=== PATIENT | male | born 1970 | race Hispanic/Latino ===

== ENCOUNTER 2018-05-29 00:55 | Emergency (ER) | payer SELFPAY ==
[2018-05-29 00:56] VITALS: BMI 26.4
[2018-05-29 01:12] VITALS: PULSE 88; TEMP 97.9
[2018-05-29] MEDS ORDERED: Albuterol-Ipratrop 3 mg / 0.5 (3 ml) UD IH STA (01:19)
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
[2018-05-29] MEDS ORDERED: Lidocaine 5% Patch TD ONE (02:45)
[2018-05-29 03:03] VITALS: BP 132/74; RESP 18; O2SAT 100
--- NOTE | 2018-05-29 09:56 | CARD ---
APPROVED REPORT Date of service: 05/29/2018 EKG Measurement Heart [id number] <Conclusion> Normal sinus rhythm Normal ECG No change
[2018-05-29] MEDS ORDERED: Lidocaine 5% Patch TD SCH (10:00)
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
== END 2018-05-29 03:02 | disposition home or self-care (01) ==
LOC: ED 00:55
DX: M79.18 Myalgia, other site (principal); Y08.89XA Assault by other specified means, initial encounter; Y92.9 Unspecified place or not applicable
CPT/HCPCS: 71111; 93005; 96372; 99283; J1885

== ENCOUNTER 2018-06-24 22:14 | Emergency (ER) | payer SELFPAY ==
[2018-06-24 22:31] VITALS: BMI 27.7
[2018-06-24 22:37] VITALS: BP 126/76; PULSE 100; RESP 20; TEMP 98.6; O2SAT 99
== END 2018-06-24 23:00 | disposition left against medical advice (07) ==
LOC: ED 22:14
DX: Z02.89 Encounter for other administrative examinations (principal); R20.2 Paresthesia of skin

== ENCOUNTER 2018-06-30 06:49 | Inpatient (IN) | payer MEDICAID, OTHER ==
--- NOTE | 2018-06-30 07:20 | ED PDOC ---
Arrival/HPI - General Chief Complaint: Upper Extremity Problem/Injury Historian: Patient - History of Present Illness Narrative History of Present Illness (Text): 06/30/18 07:16 48 year old male, smoker, whose past medical history includes substance abuse, presents to the emergency department complaining of left hand/ arm pain for the past 4- 5 days. Patient states that he injected his left forearm with heroin a couple of weeks ago, relapsing after 6 years. He believed his hand would heal by itself prolonging his visit to the emergency department. Patient denies fevers, chills, headache, dizziness, chest pain, shortness of breath, dyspnea on exert ion, cough, abdominal pain, nausea, vomiting, diarrhea, back pain, neck pain, or any other complaint. Time/Duration: < week Symptom Course: Unchanged Activities at Onset: Light Context: Home Past Medical History - Provider Review Nursing Documentation Reviewed: Yes - Past History Past History: No Previous - Infectious Disease Hx of Infectious Diseases: None - Tetanus Immunization Tetanus Immunization: Up to Date - Past Medical History Past Medical History: No Previous - Cardiac Hx Cardiac Disorders: No - Pulmonary Hx Respiratory Disorders: Yes - Neurological Hx Seizures: Yes (DRUG WITHDRAWWAL) - HEENT Hx HEENT Disorder: No - Renal Hx Renal Disorder: No - Endocrine/Metabolic Hx Endocrine Disorders: No - Hematological/Oncological Hx Hepatitis C: Yes - Integumentary Hx Squamous Cell Carcinoma: Yes - Musculoskeletal/Rheumatological Hx Back Pain: Yes - Gastrointestinal Hx Gastrointestinal Disorders: No - Genitourinary/Gynecological Hx Genitourinary Disorders: No - Psychiatric Hx Psychophysiologic Disorder: No Hx Substance Use: No - Surgical History Hx Orthopedic Surgery: Yes (neck and right knee sx) - Anesthesia Hx Anesthesia: Yes Hx Anesthesia Reactions: No Hx Malignant Hyperthermia: No - Suicidal Assessment Feels Threatened In Home Enviroment: No Family/Social History - Physician Review Nursing Documentation Reviewed: Yes Family/Social History: No Known Family HX Smoking Status: Current Some Days Smoker Hx Alcohol Use: No Hx Substance Use: No Substance used: marijuana Hx Substance Use Treatment: Yes Allergies/Home Meds Allergies/Adverse Reactions: Allergies No Known Allergies Allergy (Verified 06/30/18 11:40) Home Medications: Home Meds Medication Instructions Recorded Confirmed RX: No Known Home Med 06/30/18 06/30/18 Review of Systems - Physician Review All systems were reviewed & negative as marked: Yes - Review of Systems Constitutional: absent: Fevers Respiratory: absent: SOB, Cough Cardiovascular: absent: Chest Pain Gastrointestinal: absent: Abdominal Pain, Diarrhea, Nausea, Vomiting Musculoskeletal: Other (left hand/ forearm pain). absent: Back Pain, Neck Pain Neurological: absent: Headache, Dizziness Physical Exam Vital Signs Reviewed: Yes Vital Signs Temp Pulse Resp BP Pulse Ox 06/30/18 07:02 97.4 F L 95 H 18 130/94 H 100 Temperature: Afebrile Blood Pressure: Hypertensive Pulse: Tachycardic Respiratory Rate: Normal Appearance: Positive for: Well-Appearing, Non-Toxic, Comfortable Pain Distress: None Mental Status: Positive for: Alert and Oriented X 3 - Systems Exam Head: Present: Atraumatic, Normocephalic Pupils: Present: PERRL Extroacular Muscles: Present: EOMI Conjunctiva: Present: Normal Mouth: Present: Moist Mucous Membranes Neck: Present: Normal Range of Motion Respiratory/Chest: Present: Wheezes (midly wheezing). No: Respiratory Distress, Accessory Muscle Use Cardiovascular: Present: Regular Rate and Rhythm, Normal S1, S2. No: Murmurs Abdomen: No: Tenderness, Distention, Peritoneal Signs Back: Present: Normal Inspection Upper Extremity: Present: Edema (to left hand and forearm ), Tenderness (tender to touch of the left wrist and forearm), Erythema (to left hand and forearm ), Temperature Abnormalties (warm mid left forearm and down ) Lower Extremity: Present: Normal Inspection. No: Edema Neurological: Present: GCS=15, CN II-XII Intact, Speech Normal Skin: Present: Warm, Dry, Normal Color. No: Rashes Psychiatric: Present: Alert, Oriented x 3, Normal Insight, Normal Concentration Medical Decision Making ED Course and Treatment: 06/30/18 07:17 Impression: 48 year old male who presents to the emergency department complaining of left hand/ forearm pain. Plan: -- Labs -- Left Forearm X-ray -- Blood Culture -- Reassess and disposition Prior Visits: Notes and results from previous visits were reviewed. Progress Notes: 06/30/18 09:21 Left Forearm X-ray reviewed, shows: IMPRESSION: Soft tissue edema diffusely suggested as discussed above. No acute fracture dislocation left forearm. - Lab Interpretations I have reviewed the lab results: Yes - Scribe Statement The provider has reviewed the documentation as recorded by the Scribe Deysi Hernandez Provider Scribe Attestation: All medical record entries made by the Moses were at my direction and personally dictated by me. I have reviewed the chart and agree that the record accurately reflects my personal performance of the history, physical exam, medical decision making, and the department course for this patient. I have also personally directed, reviewed, and agree with the discharge instructions and disposition. Disposition/Present on Arrival - Present on Arrival Any Indicators Present on Arrival: No History of DVT/PE: No History of Uncontrolled Diabetes: No Urinary Catheter: No History of Decub. Ulcer: No History Surgical Site Infection Following: None - Disposition Have Diagnosis and Disposition been Completed?: Yes Diagnosis: Cellulitis of left forearm Disposition: HOSPITALIZED Disposition Time: 08:40 Condition: STABLE
[2018-06-30 08:12] LABS: BASO # 0.06 K/mm3 (0.0-2.0); BASO % 0.4 % (0.0-3.0); EOS # 0.1 (0.0-0.7); EOS % 0.4 % (1.5-5.0); GRAN # 13.13 (1.4-6.5); GRAN % 76.9 % (50.0-68.0); HEMOGLOBIN 14.5 g/dL (14.0-18.0); LYMPH # 2.7 (1.2-3.4); LYMPH % 15.6 % (22.0-35.0); MEAN CELL VOLUME 92.4 fl (80.0-105.0); MEAN CORPUSCULAR HEMOGLOBIN 32.6 pg (25.0-35.0); MEAN CORPUSCULAR HGB CONC 35.3 g/dl (31.0-37.0); MEAN PLATELET VOLUME 9.2 fl (7.0-11.0); MONO # 1.2 (0.1-0.6); MONO % 6.7 % (1.0-6.0); RBC 4.45 10^6/uL (3.5-6.1); RED CELL DISTRIBUTION WIDTH 12.4 % (11.5-14.5); WHITE BLOOD COUNT 17.1 10^3/uL (4.5-11.0)
[2018-06-30 08:22] LABS: ALB/GLOB RATIO 1.1 (1.1-1.8); ALBUMIN 3.8 g/dL (3.0-4.8); ALT/SGPT 33 U/L (7-56); AST/SGOT 35 U/L (17-59); BLOOD UREA NITROGEN 23 mg/dL (7-21); CALCIUM 8.9 mg/dL (8.4-10.5); GFR NON-AFRICAN AMERICAN > 60
--- NOTE | 2018-06-30 09:18 | RAD ---
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 TECHNIQUE: Frontal and lateral views obtained. FINDINGS: BONES: No acute fracture or destructive bony lesion identified. JOINT SPACES: No subluxation or dislocation appreciable. OTHER FINDINGS: Diffuse soft tissue edema suspected throughout the subcutaneous fat throughout the left forearm. No retained radiodense foreign body or emphysema soft tissue changes are identified. IMPRESSION: Soft tissue edema diffusely suggested as discussed above. No acute fracture dislocation left forearm.
[2018-06-30] MEDS ORDERED: Vancomycin 1gm in NS 250ml 1 GM/250 ML BAG IVPB STA (09:25)
--- NOTE | 2018-06-30 11:45 | US ---
Date of service: 06/30/2018 PROCEDURE: LIMITED LEFT UPPER EXTREMITY ULTRASOUND HISTORY: left arm COMPARISON: None available TECHNIQUE: High-resolution ultrasonography of the distal left forearm was performed close to the left wrist and area of palpable abnormality grayscale and color Doppler analysis. FINDINGS: Palpable abnormalities apparently located in the distal lateral forearm/proximal wrist soft tissues. Ultrasonography in this immediate location identifies a hypoechoic ovoid lesion measuring 2.9 x 0.7 x 2.2 cm with inhomogeneous internal echotexture. It is partially well-circumscribed and appears to deflect soft tissue planes superficial to it laterally. Hyperemia surrounds this structure with some blood flow identified within its contents. This likely reflects combination of phlegmon with potential limited abscess. Complex hematoma is felt to be less likely as well as other inflammatory causes. Further clinical correlation is recommended. Further, although the visualized distal cephalic vein is patent, it incompletely compresses with limited intraluminal echogenicity in a pattern compatible with a incomplete thrombosis. IMPRESSION: 1. A hypoechoic but heterogeneous focus identified within the deep subcutaneous soft tissue of the lateral distal forearm/wrist corresponding to the palpable abnormality and most likely represents phlegmon with underlying abscess not excluded to some degree. Complex hematoma or inflammatory etiologies are felt to be less likely. 2. Incidental thrombophlebitis distal left cephalic vein.
--- NOTE | 2018-06-30 11:53 | CP.PCM.HP ---
<Teodoro Garsia - Last Filed: 06/30/18 13:45> History of Present Illness - History of Present Illness History of Present Illness: Teodoro Garsia, PGY-1 History and Physical for Hospitalist Services CC: L arm pain HPI: Mr. Monahan is a 48 M with PMHx of IVD abuse off Heroin for six years and seizures dx 10 years ago secondary to drugs and possible Hepatitis C who relapsed 3 weeks ago due to family social issues. Patient states that 4 days ago, left arm started to throb and become painful. Patient was hoping it would get better, but pain has become unbearable. Patient took four pills of his 's antibiotic Augmentin as well as half a Suboxin and Xanax. Patient also complains of productive cough but states this has been going on for years. Patient denies chest pain, shortness of breath, palpitations, headache, dizziness, leg pain, abdominal pain, nausea, vomiting, subjective fevers and chills, changes in bowel habits and recent infections or travel. In ED, L forearm x-ray showed soft tissue edema, patient had leukocytosis with left shift without fever. Duplex LE and regular U/S was ordered. Patient found to have hypokalemia. PMHx: IVDU, PSHx: R knee sx, metal plate in neck for ? nerve damage All: NKDA Social: IVDU with Heroin 3 weeks ago, relapse from 6 years clean, tobacco 1/2 ppd Fam hx: denies cancer, HTN and DM hx Meds: denies regular use PCP: none Present on Admission - Present on Admission Any Indicators Present on Admission: No Review of Systems - Review of Systems Review of Systems: 12 point ROS completed and negative except as described in HPI. Past Patient History - Infectious Disease Hx of Infectious Diseases: None - Tetanus Immunizations Tetanus Immunization: Up to Date - Past Social History Smoking Status: Current Some Days Smoker - CARDIAC Hx Cardiac Disorders: No - PULMONARY Hx Respiratory Disorders: Yes - NEUROLOGICAL Hx Seizures: Yes (DRUG WITHDRAWWAL) - HEENT Hx HEENT Problems: No - RENAL Hx Chronic Kidney Disease: No - ENDOCRINE/METABOLIC Hx Endocrine Disorders: No - HEMATOLOGICAL/ONCOLOGICAL Hx Hepatitis C: Yes - INTEGUMENTARY Hx Squamous Cell: Yes - MUSCULOSKELETAL/RHEUMATOLOGICAL Hx Back Pain: Yes - GASTROINTESTINAL Hx Gastrointestinal Disorders: No - GENITOURINARY/GYNECOLOGICAL Hx Genitourinary Disorders: No - PSYCHIATRIC Hx Psychophysiologic Disorder: No Hx Substance Use: No - SURGICAL HISTORY Hx Orthopedic Surgery: Yes (neck and right knee sx) - ANESTHESIA Hx Anesthesia: Yes Hx Anesthesia Reactions: No Hx Malignant Hyperthermia: No Meds Allergies/Adverse Reactions: Allergies Allergy/AdvReac Type Severity Reaction Status Date / Time No Known Allergies Allergy Verified 06/30/18 11:40 Physical Exam - Constitutional Appears: Well, Non-toxic, No Acute Distress - Head Exam Head Exam: ATRAUMATIC, NORMAL INSPECTION, NORMOCEPHALIC - Eye Exam Eye Exam: EOMI, Normal appearance - ENT Exam ENT Exam: Mucous Membranes Moist - Neck Exam Neck exam: Positive for: Normal Inspection - Respiratory Exam Respiratory Exam: Wheezes, NORMAL BREATHING PATTERN. absent: Clear to Auscultation Bilateral, Respiratory Distress - GI/Abdominal Exam GI & Abdominal Exam: Normal Bowel Sounds, Soft. absent: Guarding, Rebound, Rigid, Tenderness - Extremities Exam Extremities exam: Positive for: normal inspection. Negative for: joint swelling Additional comments: 2 cm hard, non-fluctuant indurated distal dorsal forearm collection with edema and cellulitis distally in L forearm and hand as compared to R - Skin Additional comments: tattoos on arms and chest Results - Vital Signs Recent Vital Signs: Last Vital Signs Temp 98.2 F 06/30/18 10:31 Pulse 95 H 06/30/18 10:31 Resp 18 06/30/18 10:31 BP 129/88 06/30/18 10:17 Pulse Ox 99 06/30/18 10:31 - Labs Result Diagrams: 06/30/18 07:59 06/30/18 07:59 Labs: Laboratory Results - last 24 hr 06/30/18 06/30/18 07:59 07:59 WBC 17.1 H RBC 4.45 Hgb 14.5 Hct 41.1 L MCV 92.4 MCH 32.6 MCHC 35.3 RDW 12.4 Plt Count 280 MPV 9.2 Gran % 76.9 H Lymph % (Auto) 15.6 L [place] % (Auto) 6.7 H Eos % (Auto) 0.4 L Baso % (Auto) 0.4 Gran # 13.13 H Lymph # (Auto) 2.7 [place] # (Auto) 1.2 H Eos # (Auto) 0.1 Baso # (Auto) 0.06 Sodium 135 Potassium 3.4 L Chloride 100 Carbon Dioxide 27 Anion Gap 12 BUN 23 H Creatinine 1.0 Est GFR ( Amer) > 60 Est GFR (Non-Af Amer) > 60 Random Glucose 135 H Calcium 8.9 Total Bilirubin 0.7 AST 35 ALT 33 Alkaline Phosphatase 63 Total Protein 7.3 Albumin 3.8 Globulin 3.4 Albumin/Globulin Ratio 1.1 Assessment & Plan - Assessment and Plan (Free Text) Assessment: 48 M with PMHX of IVDU who presents with cellulitis. Sepsis 2/2 L forearm cellulitis vs abscess Leukocytosis with L shift, afebrile, tachycardia CRP 15 IVF NS @ 100 cc/hr Surgical consult - Dr. Lucero - recommendations appreciated ID consult - Dr. Puente - recommendations appreciated Vanc and Zosyn Nonvascular U/S - phlegmon with underlying abscess not excluded. Incidental t hrombophlebitis distal L cephalic vein Vascular U/S: no evidence of DVT F/u CT LUE and follow to r/o compartment syndrome F/u UDS f/u PT/PTT f/u blood cx ? Hepatitis history f/u Hep C, Hep B and HIV Ab Hypokalemia K-dur 20 m Eq replete continue to monitor Wheezing Duonebs PRN continue to monitor Patient seen, case reviewed and plan approved by Dr. Skinner. Teodoro Garsia, PGY-1 <Kiran Skinner - Last Filed: 07/01/18 08:00> Results - Vital Signs Recent Vital Signs: Last Vital Signs Temp 98 F 06/30/18 21:46 Pulse 68 06/30/18 21:46 Resp 20 06/30/18 21:46 BP 107/69 06/30/18 21:46 Pulse Ox 95 06/30/18 21:46 - Labs Result Diagrams: 07/01/18 06:20 07/01/18 06:20 Labs: Laboratory Results - last 24 hr 06/30/18 06/30/18 06/30/18 07:59 07:59 07:59 WBC 17.1 H RBC 4.45 Hgb 14.5 Hct 41.1 L MCV 92.4 MCH 32.6 MCHC 35.3 RDW 12.4 Plt Count 280 MPV 9.2 Gran % 76.9 H Lymph % (Auto) 15.6 L [place] % (Auto) 6.7 H Eos % (Auto) 0.4 L Baso % (Auto) 0.4 Gran # 13.13 H Lymph # (Auto) 2.7 [place] # (Auto) 1.2 H Eos # (Auto) 0.1 Baso # (Auto) 0.06 PT INR APTT Sodium 135 Potassium 3.4 L Chloride 100 Carbon Dioxide 27 Anion Gap 12 BUN 23 H Creatinine 1.0 Est GFR ( Amer) > 60 Est GFR (Non-Af Amer) > 60 Random Glucose 135 H Calcium 8.9 Total Bilirubin 0.7 AST 35 ALT 33 Alkaline Phosphatase 63 C-React Prot High Sens > 15.00 H Total Protein 7.3 Albumin 3.8 Globulin 3.4 Albumin/Globulin Ratio 1.1 Urine Opiates Screen Urine Methadone Screen Ur Barbiturates Screen Ur Phencyclidine Scrn Ur Amphetamines Screen U Benzodiazepines Scrn U Oth Cocaine Metabols U Cannabinoids Screen Hep Bs Antigen 06/30/18 06/30/18 07/01/18 08:30 23:38 06:20 WBC 10.1 D RBC 3.80 Hgb 12.0 L D Hct 35.4 L MCV 93.2 MCH 31.6 MCHC 33.9 RDW 12.4 Plt Count 234 MPV 9.2 Gran % 77.5 H Lymph % (Auto) 14.4 L [place] % (Auto) 6.3 H Eos % (Auto) 1.4 L Baso % (Auto) 0.4 Gran # 7.83 H Lymph # (Auto) 1.5 [place] # (Auto) 0.6 Eos # (Auto) 0.1 Baso # (Auto) 0.04 PT INR APTT Sodium Potassium Chloride Carbon Dioxide Anion Gap BUN Creatinine Est GFR ( Amer) Est GFR (Non-Af Amer) Random Glucose Calcium Total Bilirubin AST ALT Alkaline Phosphatase C-React Prot High Sens Total Protein Albumin Globulin Albumin/Globulin Ratio Urine Opiates Screen Positive H Urine Methadone Screen Negative Ur Barbiturates Screen Negative Ur Phencyclidine Scrn Negative Ur Amphetamines Screen Negative U Benzodiazepines Scrn Negative U Oth Cocaine Metabols Negative U Cannabinoids Screen Negative Hep Bs Antigen Negative 07/01/18 07/01/18 06:20 06:20 WBC RBC Hgb Hct MCV MCH MCHC RDW Plt Count MPV Gran % Lymph % (Auto) [place] % (Auto) Eos % (Auto) Baso % (Auto) Gran # Lymph # (Auto) [place] # (Auto) Eos # (Auto) Baso # (Auto) PT 12.1 INR 1.05 APTT 26.7 Sodium 135 Potassium 3.7 Chloride 105 Carbon Dioxide 27 Anion Gap 7 L BUN 19 Creatinine 1.1 Est GFR ( Amer) > 60 Est GFR (Non-Af Amer) > 60 Random Glucose 112 H Calcium 8.1 L Total Bilirubin 0.4 AST 31 ALT 32 Alkaline Phosphatase 60 C-React Prot High Sens Total Protein 5.6 L Albumin 2.9 L Globulin 2.8 Albumin/Globulin Ratio 1.0 L Urine Opiates Screen Urine Methadone Screen Ur Barbiturates Screen Ur Phencyclidine Scrn Ur Amphetamines Screen U Benzodiazepines Scrn U Oth Cocaine Metabols U Cannabinoids Screen Hep Bs Antigen Attending/Attestation - Attestation I have personally seen and examined this patient.: Yes I have fully participated in the care of the patient.: Yes I have reviewed all pertinent clinical information: Yes Notes (Text): 07/01/18 07:57 Medical record note made by the resident after discussion with my direction and input after the patient was personally seen and examined by me. I have reviewed the chart and agree that the record accurately reflects by personal performance of the history, physical exam, data review, and medical decision-making, in the course for the patient. I have also personally directed the plan of care. 48 M with PMH of IV drug abuse , seizure disorder? is admitted with left arm cellulitis, rule out abscess. Continue IV antibiotics Vancomycin and Zosyn We will get CT scan of left forearm.We will follow up blood cultures. We will also get Surgery evaluation. Management plan was discussed in detail with patient. Education was provided
--- NOTE | 2018-06-30 13:04 | US ---
PROCEDURE: Left upper extremity venous ultrasound HISTORY: Arm pain and swelling. Evaluate for deep venous thrombosis. PHYSICIAN(S): Festus Nazario MD. FINDINGS: The visualized leftinternal jugular vein is sonographically normal and compressible. No evidence of obstruction or thrombus is seen. The visualized segments of the left subclavian vein are patent with normal waveforms. No sonographic evidence of obstruction or thrombosis is seen. The visualized deep venous system of the proximal leftupper extremity is sonographically normal and compressible. IMPRESSION: 1. No sonographic evidence for deep venous thrombosis in the visualized segments of the left upper extremity.
[2018-06-30] MEDS ORDERED: Potassium Chloride 20 mEq ER Tab PO ONE (13:13)
[2018-06-30] MEDS ORDERED: Albuterol-Ipratrop 3 mg / 0.5 (3 ml) UD IH PRN (13:18)
--- NOTE | 2018-06-30 13:46 | CP.PCM.CON ---
History of Present Illness - History of Present Illness History of Present Illness: Chad Cruz DO PGY1 - Internal Medicine network internship - Surgical Consult Note for Dr. Lucero 45M w/ PMHX IVDA presented to [facility] [place] w/ CC of L arm pain. Patient reported pain is located along medial aspect of his left forearm after injecting himself w/ heroin in the same region 4-5 days ago. Patient reports the pain radiates down into his hand and has an associated numbness w/ some weakness in regards to closing his L hand. Patient also reports associated chills. Remainder of 12 system ROS is otherwise negative. Surgery consulted for evaluation of L arm for possible I+D of abscess PMH: IVDA PSH: R knee orthopedic surgery, cervical surgery for pinched nerve ALL: NKDA FAM: Non contributory MEDS: None Social: IVDU PCP: NONE Review of Systems - Review of Systems Review of Systems: as per HPI Past Patient History - Infectious Disease Hx of Infectious Diseases: None - Tetanus Immunizations Tetanus Immunization: Up to Date - Past Social History Smoking Status: Current Some Days Smoker - CARDIAC Hx Cardiac Disorders: No - PULMONARY Hx Respiratory Disorders: Yes - NEUROLOGICAL Hx Seizures: Yes (DRUG WITHDRAWWAL) - HEENT Hx HEENT Problems: No - RENAL Hx Chronic Kidney Disease: No - ENDOCRINE/METABOLIC Hx Endocrine Disorders: No - HEMATOLOGICAL/ONCOLOGICAL Hx Hepatitis C: Yes - INTEGUMENTARY Hx Squamous Cell: Yes - MUSCULOSKELETAL/RHEUMATOLOGICAL Hx Back Pain: Yes - GASTROINTESTINAL Hx Gastrointestinal Disorders: No - GENITOURINARY/GYNECOLOGICAL Hx Genitourinary Disorders: No - PSYCHIATRIC Hx Psychophysiologic Disorder: No Hx Substance Use: No - SURGICAL HISTORY Hx Orthopedic Surgery: Yes (neck and right knee sx) - ANESTHESIA Hx Anesthesia: Yes Hx Anesthesia Reactions: No Hx Malignant Hyperthermia: No Meds Allergies/Adverse Reactions: Allergies Allergy/AdvReac Type Severity Reaction Status Date / Time No Known Allergies Allergy Verified 06/30/18 11:40 - Medications Medications: Current Medications Albuterol/Ipratropium (Duoneb 3 Mg/0.5 Mg (3 Ml) Ud) 3 ml IH Q2H PRN PRN Reason: Shortness of Breath Vancomycin HCl (Vancomycin 1gm) 1 gm in 250 mls @ 167 mls/hr IVPB Q12H JUDY; Protocol Stop: 07/09/18 12:46 Piperacillin Sod/Tazobactam Sod (Zosyn 3.375 In Ns 100ml) 100 mls @ 25 mls/hr IVPB Q8 JUDY; Protocol Stop: 07/06/18 14:01 Physical Exam - Constitutional Appears: Well, Non-toxic, No Acute Distress - Head Exam Head Exam: ATRAUMATIC, NORMOCEPHALIC - Eye Exam Eye Exam: EOMI, Normal appearance, PERRL. absent: Scleral icterus - ENT Exam ENT Exam: Mucous Membranes Moist - Respiratory Exam Respiratory Exam: Clear to Auscultation Bilateral, NORMAL BREATHING PATTERN - Cardiovascular Exam Cardiovascular Exam: RRR, +S1, +S2 - GI/Abdominal Exam GI & Abdominal Exam: Soft. 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 Arm/Hand are warm w/pulses in tact; pitting edema appreciated on dorsal aspect of left hand; no fluctuant mass/ abscess palpated on exam RUE - wnl - Neurological Exam Neurological exam: Alert, Oriented x3 - Skin Skin Exam: Dry, Intact, Warm Results - Vital Signs Recent Vital Signs: Last Vital Signs Temp 98.2 F 06/30/18 10:31 Pulse 95 H 06/30/18 10:31 Resp 18 06/30/18 10:31 BP 129/88 06/30/18 10:17 Pulse Ox 99 06/30/18 10:31 - Labs Result Diagrams: 06/30/18 07:59 06/30/18 07:59 Labs: Laboratory Results - last 24 hr 06/30/18 06/30/18 06/30/18 07:59 07:59 07:59 WBC 17.1 H RBC 4.45 Hgb 14.5 Hct 41.1 L MCV 92.4 MCH 32.6 MCHC 35.3 RDW 12.4 Plt Count 280 MPV 9.2 Gran % 76.9 H Lymph % (Auto) 15.6 L [place] % (Auto) 6.7 H Eos % (Auto) 0.4 L Baso % (Auto) 0.4 Gran # 13.13 H Lymph # (Auto) 2.7 [place] # (Auto) 1.2 H Eos # (Auto) 0.1 Baso # (Auto) 0.06 Sodium 135 Potassium 3.4 L Chloride 100 Carbon Dioxide 27 Anion Gap 12 BUN 23 H Creatinine 1.0 Est GFR ( Amer) > 60 Est GFR (Non-Af Amer) > 60 Random Glucose 135 H Calcium 8.9 Total Bilirubin 0.7 AST 35 ALT 33 Alkaline Phosphatase 63 C-React Prot High Sens > 15.00 H Total Protein 7.3 Albumin 3.8 Globulin 3.4 Albumin/Globulin Ratio 1.1 Assessment & Plan - Assessment and Plan (Free Text) Assessment: 45M w/ PMHX IVDA presented to [facility] [place] w/ CC of L arm pain. Surgery consulted to evaluate LUE for possible I+D Plan: -Follow up CT arm -LUE US - phlegmon w/ underlying abscess? -LUE XR - Soft tissue edema -Elevated LUE -Warm Compress -IV ABX as per ID -Further reccs per Dr. Nic Cruz DO PGY1 - Internal Medicine Motor[employer]ach Driver - Surgery Consult Note for Dr. Lucero - Date & Time Date: 06/30/18 Time: 15:16
[2018-06-30] MEDS ORDERED: Piperacillin/Tazobact 3.375 gm 100 ML IVPB SCH (14:00)
[2018-06-30 14:14] VITALS: BMI 30.4
[2018-06-30] MEDS ORDERED: Pneumococcal 23-Valent Vaccine IM ONE (14:14)
[2018-06-30] MEDS ORDERED: Influenza Vaccine 60 mcg/0.5 mL SYR (4YR UP) IM ONE (14:14)
--- NOTE | 2018-06-30 14:52 | CT ---
Date of service: 06/30/2018 PROCEDURE: CT of the left hand without contrast HISTORY: r/o collection / compartment syndrome COMPARISON: TECHNIQUE: Radiation dose: Total exam DLP = 247.58 mGy-cm. This CT exam was performed using one or more of the following dose reduction techniques: Automated exposure control, adjustment of the mA and/or kV according to patient size, and/or use of iterative reconstruction technique. FINDINGS: There is subcutaneous edema surrounding the wrist. There is no focal abscess collection. There is no evidence of osteomyelitis. IMPRESSION: Subcutaneous edema surrounding the wrist consistent with cellulitis.
[2018-06-30] MEDS: Vancomycin 1gm in NS 250ml 1 GM/250 ML BAG IVPB SCH (15:05)
[2018-06-30] MEDS: Piperacillin/Tazobact 3.375 gm 100 ML IVPB SCH ×2 (15:05→21:41)
[2018-06-30] MEDS: Sodium Chloride 0.9% 1,000 ML IV SCH (15:11)
--- NOTE | 2018-06-30 16:11 | CON ---
DATE: 06/30/2018 LOCATION: The patient is in bed in room #567, bed 1. CHIEF COMPLAINT: Left arm swelling and erythema and edema x1 day duration. HISTORY OF PRESENT ILLNESS: This is a 48-year-old male with a history of intravenous drug abuser, actively shoots up. He has a history of hepatitis C, seizures, chronic pain syndrome, and states that he shot up into his arm. His arm became swollen. He denies any fevers, any chills, any nausea. No vomiting. However, significant pain in the arm. No chest pain, shortness of breath or cough. PAST MEDICAL HISTORY: Significant for hepatitis C, chronic pain syndrome, seizures, and active intravenous drug abuser and tobacco user. PAST SURGICAL HISTORY: Noncontributory. ALLERGIES: THE PATIENT HAS NO KNOWN ALLERGIES. MEDICATIONS AT HOME: He takes no medications. He is currently an intravenous active user. PHYSICAL EXAMINATION: VITAL SIGNS: The patient's temperature is 98, blood pressure is 130/80, respiratory rate of 18, heart rate of 95. HEENT: Examination of HEENT is unremarkable. NECK: Supple. LUNGS: Have decreased breath sounds. HEART: Normal S1, S2. ABDOMEN: Soft, nontender. EXTREMITIES: Examination of the arm reveals the patient has erythema and edema in left arm, significant edema. LABORATORY EXAMINATION: Reveals a white count of 17,000, hemoglobin of 14, platelets of 280. BUN of 23, creatinine of 1. The patient had an ultrasound of the extremity, results pending. The patient had an x-ray of the extremity, also results are pending. ASSESSMENT AND PLAN: This is a 48-year-old, who is an active intravenous drug abuse, admitted with sepsis, with left arm cellulitis and probable abscess versus compartment syndrome. We will send for a stat CAT scan of the arm and surgical consultation and blood cultures. If there is incision and drainage of an abscess, should go for cultures, should have an HIV test, and hepatitis C treatment may be done as outpatient upon discharge, and we will follow closely with you. Check on the ultrasound, CAT scan results, and we will follow with you. Abhi Puente MD [facility] # [id number]
[2018-07-01] MEDS: Vancomycin 1gm in NS 250ml 1 GM/250 ML BAG IVPB SCH ×2 (03:01→12:46)
[2018-07-01 05:13] LABS: BARBITURATES, UR NEGATIVE (NEGATIVE); BENZODIAZEPINES, UR NEGATIVE (NEGATIVE); OPIATES, UR POSITIVE (NEGATIVE); PHENCYCLIDINE, UR NEGATIVE (NEGATIVE)
[2018-07-01] MEDS: Piperacillin/Tazobact 3.375 gm 100 ML IVPB SCH ×3 (05:54→22:48)
[2018-07-01 07:05] LABS: INR 1.05; PARTIAL THROMBOPLASTIN TIME 26.7 Seconds (25.1-36.5); PROTHROMBIN TIME 12.1 SECONDS (9.4-12.5)
[2018-07-01 07:08] LABS: BASO # 0.04 K/mm3 (0.0-2.0); BASO % 0.4 % (0.0-3.0); EOS # 0.1 (0.0-0.7); EOS % 1.4 % (1.5-5.0); GRAN # 7.83 (1.4-6.5); GRAN % 77.5 % (50.0-68.0); LYMPH # 1.5 (1.2-3.4); LYMPH % 14.4 % (22.0-35.0); MEAN CELL VOLUME 93.2 fl (80.0-105.0); MEAN CORPUSCULAR HEMOGLOBIN 31.6 pg (25.0-35.0); MEAN CORPUSCULAR HGB CONC 33.9 g/dl (31.0-37.0); MEAN PLATELET VOLUME 9.2 fl (7.0-11.0); MONO # 0.6 (0.1-0.6); MONO % 6.3 % (1.0-6.0); RBC 3.8 10^6/uL (3.5-6.1); RED CELL DISTRIBUTION WIDTH 12.4 % (11.5-14.5); WHITE BLOOD COUNT 10.1 10^3/uL (4.5-11.0)
--- NOTE | 2018-07-01 07:39 | CP.PCM.PN ---
Subjective - Date & Time of Evaluation Date of Evaluation: 07/01/18 Time of Evaluation: 07:33 - Subjective Subjective: Chad Cruz PGY1 - Internal Medicine Motor Home Electrical Foreman - Surgery Progress Note for Dr. Lucero Patient seen and examined this AM at bedside Reports his hand feels much better; improved mobility of LUE; decreased numbness/ tingling Patient is afebrile; remainder 12 system ROS otherwise negative. Objective - Vital Signs/Intake and Output Vital Signs (last 24 hours): Temp Pulse Resp BP Pulse Ox 98 F 68 20 107/69 95 06/30/18 21:46 06/30/18 21:46 06/30/18 21:46 06/30/18 21:46 06/30/18 21:46 Intake and Output: 07/01/18 07/01/18 06:59 18:59 Intake Total 360 Balance 360 - Medications Medications: Current Medications Albuterol/Ipratropium (Duoneb 3 Mg/0.5 Mg (3 Ml) Ud) 3 ml IH Q2H PRN PRN Reason: Shortness of Breath Vancomycin HCl (Vancomycin 1gm) 1 gm in 250 mls @ 167 mls/hr IVPB Q12H JUDY; Protocol Stop: 07/09/18 12:46 Last Admin: 07/01/18 03:01 Dose: 167 mls/hr Piperacillin Sod/Tazobactam Sod (Zosyn 3.375 In Ns 100ml) 100 mls @ 25 mls/hr IVPB Q8 JUDY; Protocol Stop: 07/06/18 14:01 Last Admin: 07/01/18 05:54 Dose: 25 mls/hr Sodium Chloride (Sodium Chloride 0.9%) 1,000 mls @ 100 mls/hr IV .Q10H JUDY Last Admin: 06/30/18 15:11 Dose: 100 mls/hr - Labs Labs: 07/01/18 06:20 06/30/18 07:59 PT 12.1 SECONDS (9.4-12.5) 07/01/18 06:20 INR 1.05 07/01/18 06:20 APTT 26.7 Seconds (25.1-36.5) 07/01/18 06:20 Physical Exam - Constitutional Appears: Well, Non-toxic, No Acute Distress - Head Exam Head Exam: ATRAUMATIC, NORMOCEPHALIC - Eye Exam Eye Exam: EOMI, Normal appearance, PERRL. absent: Scleral icterus - ENT Exam ENT Exam: Mucous Membranes Moist - Respiratory Exam Respiratory Exam: Clear to Auscultation Bilateral, NORMAL BREATHING PATTERN - Cardiovascular Exam Cardiovascular Exam: RRR, +S1, +S2 - GI/Abdominal Exam GI & Abdominal Exam: Soft. absent: Tenderness - Extremities Exam Additional comments: LUE - moderate edema / swelling extending from medial aspect of forearm to hand; Numbness along dorsal and palmar aspect of L hand; L hand project admin strength relativ roxy diminished compared to R 2/2 pain. Arm/Hand are warm w/pulses in tact; no fluctuant mass/ abscess palpated on exam All findings are improved from examination prior. RUE - wnl - Neurological Exam Neurological exam: Alert, Oriented x3 - Skin Skin Exam: Dry, Intact, Warm Assessment and Plan - Assessment and Plan (Free Text) Assessment: 45M w/ PMHX IVDA presented to [facility] [place] ED on 06/30 w/ CC of L arm pain. Surgery consulted to evaluate LUE for possible I+D Plan: -LUE CT- no abscess -LUE US - phlegmon w/ underlying abscess? -LUE XR - Soft tissue edema -Continue Elevating LUE -Continue applying Warm Compress to area -IV ABX as per ID -No acute need for surgical intervention at this time -Please reconsult as necessary Chad Cruz DO PGY1 - Internal Medicine [employer] Electrical Foreman - Surgery Consult Note for Dr. Lucero
[2018-07-01 07:54] LABS: ALBUMIN 2.9 g/dL (3.0-4.8); ALT/SGPT 32 U/L (7-56); AST/SGOT 31 U/L (17-59); BLOOD UREA NITROGEN 19 mg/dL (7-21); CALCIUM 8.1 mg/dL (8.4-10.5); GFR NON-AFRICAN AMERICAN > 60
--- NOTE | 2018-07-01 14:51 | CP.PCM.PN ---
<Teodoro Garsia - Last Filed: 07/01/18 14:58> Subjective - Date & Time of Evaluation Date of Evaluation: 07/01/18 Time of Evaluation: 08:00 - Subjective Subjective: Teodoro Garsia PGY-1 Progress Note for Hospitalist Service Patient seen and evaluated at bedside. No acute complaints reported overnight. Reports l arm is still painful but improved. Patient denies chest pain, palpitations, shortness of breath, headaches, dizziness. Objective - Vital Signs/Intake and Output Vital Signs (last 24 hours): Temp Pulse Resp BP Pulse Ox 98.6 F 78 20 104/61 94 L 07/01/18 06:00 07/01/18 06:00 07/01/18 06:00 07/01/18 06:00 07/01/18 06:00 Intake and Output: 07/01/18 07/01/18 06:59 18:59 Intake Total 360 Balance 360 - Medications Medications: Current Medications Albuterol/Ipratropium (Duoneb 3 Mg/0.5 Mg (3 Ml) Ud) 3 ml IH Q2H PRN PRN Reason: Shortness of Breath Vancomycin HCl (Vancomycin 1gm) 1 gm in 250 mls @ 167 mls/hr IVPB Q12H JUDY; Protocol Stop: 07/09/18 12:46 Last Admin: 07/01/18 12:46 Dose: 167 mls/hr Piperacillin Sod/Tazobactam Sod (Zosyn 3.375 In Ns 100ml) 100 mls @ 25 mls/hr IVPB Q8 JUDY; Protocol Stop: 07/06/18 14:01 Last Admin: 07/01/18 14:08 Dose: 25 mls/hr Sodium Chloride (Sodium Chloride 0.9%) 1,000 mls @ 100 mls/hr IV .Q10H JUDY Last Admin: 06/30/18 15:11 Dose: 100 mls/hr Ketorolac Tromethamine (Toradol) 15 mg IM Q6 PRN PRN Reason: Pain, moderate (4-7) Stop: 07/06/18 13:05 Last Admin: 07/01/18 14:09 Dose: 15 mg - Labs Labs: 07/01/18 06:20 07/01/18 06:20 PT 12.1 SECONDS (9.4-12.5) 07/01/18 06:20 INR 1.05 07/01/18 06:20 APTT 26.7 Seconds (25.1-36.5) 07/01/18 06:20 - Additional Findings Additional findings: - Constitutional Appears: Well, Non-toxic, No Acute Distress - Head Exam Head Exam: ATRAUMATIC, NORMAL INSPECTION, NORMOCEPHALIC - Eye Exam Eye Exam: EOMI, Normal appearance - ENT Exam ENT Exam: Mucous Membranes Moist - Neck Exam Neck exam: Positive for: Normal Inspection - Respiratory Exam Respiratory Exam: Wheezes, NORMAL BREATHING PATTERN. absent: Clear to Auscultation Bilateral, Respiratory Distress - GI/Abdominal Exam GI & Abdominal Exam: Normal Bowel Sounds, Soft. absent: Guarding, Rebound, Rigid, Tenderness - Extremities Exam Extremities exam: Positive for: normal inspection. Negative for: joint swelling Additional comments: 2 cm hard, non-fluctuant indurated distal dorsal forearm collection with edema and cellulitis distally in L forearm and hand as compared to R, improving since 06/30 - Skin Additional comments: tattoos on arms and chest Assessment and Plan - Assessment and Plan (Free Text) Assessment: 48 M with PMHX of IVDU and Hepatitis C who presents with cellulitis of left forearm. Sepsis 2/2 L forearm cellulitis, r/o abscess- improved Leukocytosis with L shift, afebrile, tachycardia on admission WBC 10.1 CRP 15 IVF NS @ 100 cc/hr Surgical consult - Dr. Lucero - warm compresses, extremity elevation, no drainage at this time. ID consult - Dr. Puente - recommendations appreciated Vanc and Zosyn day 2 Nonvascular U/S - phlegmon with underlying abscess not excluded. Incidental thrombophlebitis distal L cephalic vein Vascular U/S: no evidence of DVT CT LUE - subcutaneous edema around wrist. No focal abscess. no OM. C/w cellulitis UDS + opiates blood cx 2/2 neg after 24 hours Normocytic Anemia Hgb 12, likely dilutional continue to monitor Hepatitis C + for Hep C ABx, reactive neg for HIV Counselling provided, compliance discussed Patient encouraged to follow up in outpatient clinic and importance of compliance with medications Pain control Toradol 15 mg q6 PRN Avoid opioids Hypokalemia- resolved K-dur 20 m Eq replete 06/30 continue to monitor Wheezing Duonebs PRN continue to monitor Patient seen, case reviewed and plan approved by Dr. Skinner. Teodoro Garsia, PGY-1 <Kiran Skinner - Last Filed: 07/02/18 12:00> Objective - Vital Signs/Intake and Output Vital Signs (last 24 hours): Temp Pulse Resp BP Pulse Ox 98 F 62 20 123/64 96 07/02/18 07:00 07/02/18 07:00 07/02/18 07:00 07/02/18 07:00 07/02/18 07:00 Intake and Output: 07/02/18 07/02/18 06:59 18:59 Intake Total 2009 Balance 2009 - Medications Medications: Current Medications Albuterol/Ipratropium (Duoneb 3 Mg/0.5 Mg (3 Ml) Ud) 3 ml IH Q2H PRN PRN Reason: Shortness of Breath Vancomycin HCl (Vancomycin 1gm) 1 gm in 250 mls @ 167 mls/hr IVPB Q12H JUDY; Protocol Stop: 07/09/18 12:46 Last Admin: 07/02/18 01:03 Dose: 167 mls/hr Piperacillin Sod/Tazobactam Sod (Zosyn 3.375 In Ns 100ml) 100 mls @ 25 mls/hr IVPB Q8 JUDY; Protocol Stop: 07/06/18 14:01 Last Admin: 07/02/18 05:56 Dose: 25 mls/hr Sodium Chloride (Sodium Chloride 0.9%) 1,000 mls @ 100 mls/hr IV .Q10H JUDY Last Admin: 07/02/18 05:53 Dose: 100 mls/hr Ketorolac Tromethamine (Toradol) 15 mg IM Q6 PRN PRN Reason: Pain, moderate (4-7) Stop: 07/06/18 13:05 Last Admin: 07/01/18 22:50 Dose: 15 mg - Labs Labs: 07/02/18 06:30 07/02/18 06:30 PT 12.1 SECONDS (9.4-12.5) 07/01/18 06:20 INR 1.05 07/01/18 06:20 APTT 26.7 Seconds (25.1-36.5) 07/01/18 06:20 Attending/Attestation - Attestation I have personally seen and examined this patient.: Yes I have fully participated in the care of the patient.: Yes I have reviewed all pertinent clinical information, including history, physical exam and plan: Yes Notes (Text): 07/02/18 11:59 Medical record note made by the resident after discussion with my direction and input after the patient was personally seen and examined by me. I have reviewed the chart and agree that the record accurately reflects by personal performance of the history, physical exam, data review, and medical decision-making, in the course for the patient. I have also personally directed the plan of care. 48 M with H of IV drug abuse , seizure disorder? was admitted with left arm cellulitis, CT scan was negative for any abscess. Redness and swelling is improving Continue IV antibiotics Vancomycin and Zosyn Blood cultures are negative for any growth. Management plan was discussed in detail with patient. Education was provided
[2018-07-01] MEDS: Sodium Chloride 0.9% 1,000 ML IV SCH ×2 (18:10→22:50)
--- NOTE | 2018-07-01 22:15 | CP.PCM.PN ---
Subjective - Date & Time of Evaluation Date of Evaluation: 07/01/18 Time of Evaluation: 09:05 - Subjective Subjective: Still with pain and swelling in the left arm, no fevers. Objective - Vital Signs/Intake and Output Vital Signs (last 24 hours): Temp Pulse Resp BP Pulse Ox 98.3 F 79 20 111/65 96 07/01/18 18:00 07/01/18 14:00 07/01/18 14:00 07/01/18 14:00 07/01/18 14:00 - Medications Medications: Current Medications Albuterol/Ipratropium (Duoneb 3 Mg/0.5 Mg (3 Ml) Ud) 3 ml IH Q2H PRN PRN Reason: Shortness of Breath Vancomycin HCl (Vancomycin 1gm) 1 gm in 250 mls @ 167 mls/hr IVPB Q12H JUDY; Protocol Stop: 07/09/18 12:46 Last Admin: 07/01/18 12:46 Dose: 167 mls/hr Piperacillin Sod/Tazobactam Sod (Zosyn 3.375 In Ns 100ml) 100 mls @ 25 mls/hr IVPB Q8 JUYD; Protocol Stop: 07/06/18 14:01 Last Admin: 07/01/18 14:40 Dose: 25 mls/hr Sodium Chloride (Sodium Chloride 0.9%) 1,000 mls @ 100 mls/hr IV .Q10H JUDY Last Admin: 07/01/18 18:10 Dose: Not Given Ketorolac Tromethamine (Toradol) 15 mg IM Q6 PRN PRN Reason: Pain, moderate (4-7) Stop: 07/06/18 13:05 Last Admin: 07/01/18 14:09 Dose: 15 mg - Labs Labs: 07/01/18 06:20 07/01/18 06:20 PT 12.1 SECONDS (9.4-12.5) 07/01/18 06:20 INR 1.05 07/01/18 06:20 APTT 26.7 Seconds (25.1-36.5) 07/01/18 06:20 - Constitutional Appears: No Acute Distress, Chronically Ill - Head Exam Head Exam: NORMAL INSPECTION - Respiratory Exam Respiratory Exam: Decreased Breath Sounds - Cardiovascular Exam Cardiovascular Exam: +S1, +S2 - GI/Abdominal Exam GI & Abdominal Exam: Soft. absent: Tenderness - Extremities Exam Additional comments: left forearm with swelling and erythema Assessment and Plan - Assessment and Plan (Free Text) Plan: Assessment Left forearm cellulitis in an IV drug user with sepsis chronic active hepatitis C seizure disorder chronic pain syndrome Plan continue Vancomycin and Zosyn pending final blood cx results surgery following to monitor if patient develops abscess
[2018-07-02] MEDS: Vancomycin 1gm in NS 250ml 1 GM/250 ML BAG IVPB SCH ×2 (01:03→12:47)
[2018-07-02 05:52] VITALS: RESP 20
[2018-07-02] MEDS: Sodium Chloride 0.9% 1,000 ML IV SCH ×3 (05:53→20:48)
[2018-07-02] MEDS: Piperacillin/Tazobact 3.375 gm 100 ML IVPB SCH ×2 (05:56→13:56)
[2018-07-02 07:14] LABS: ALBUMIN 2.9 g/dL (3.0-4.8); ALT/SGPT 28 U/L (7-56); AST/SGOT 21 U/L (17-59); BLOOD UREA NITROGEN 16 mg/dL (7-21); GFR NON-AFRICAN AMERICAN > 60
[2018-07-02 07:55] LABS: HEMOGLOBIN 12.4 g/dL (14.0-18.0); MEAN CELL VOLUME 93.5 fl (80.0-105.0); MEAN CORPUSCULAR HEMOGLOBIN 32.1 pg (25.0-35.0); MEAN CORPUSCULAR HGB CONC 34.3 g/dl (31.0-37.0); RBC 3.86 10^6/uL (3.5-6.1); RED CELL DISTRIBUTION WIDTH 11.9 % (11.5-14.5); WHITE BLOOD COUNT 8.1 10^3/uL (4.5-11.0)
[2018-07-02 07:56] LABS: BASO # 0.03 K/mm3 (0.0-2.0); BASO % 0.4 % (0.0-3.0); EOS # 0.1 (0.0-0.7); EOS % 1.1 % (1.5-5.0); GRAN # 5.69 (1.4-6.5); GRAN % 69.9 % (50.0-68.0); LYMPH # 1.7 (1.2-3.4); MEAN PLATELET VOLUME 9.9 fl (7.0-11.0); MONO # 0.6 (0.1-0.6); MONO % 7.6 % (1.0-6.0)
--- NOTE | 2018-07-02 09:58 | CP.PCM.PN ---
Subjective - Date & Time of Evaluation Date of Evaluation: 07/02/18 Time of Evaluation: 08:20 Objective - Vital Signs/Intake and Output Vital Signs (last 24 hours): Temp Pulse Resp BP Pulse Ox 98 F 62 20 123/64 96 07/02/18 07:00 07/02/18 07:00 07/02/18 07:00 07/02/18 07:00 07/02/18 07:00 Intake and Output: 07/02/18 07/02/18 06:59 18:59 Intake Total 2009 Balance 2009 - Medications Medications: Current Medications Albuterol/Ipratropium (Duoneb 3 Mg/0.5 Mg (3 Ml) Ud) 3 ml IH Q2H PRN PRN Reason: Shortness of Breath Vancomycin HCl (Vancomycin 1gm) 1 gm in 250 mls @ 167 mls/hr IVPB Q12H JUDY; Protocol Stop: 07/09/18 12:46 Last Admin: 07/02/18 01:03 Dose: 167 mls/hr Piperacillin Sod/Tazobactam Sod (Zosyn 3.375 In Ns 100ml) 100 mls @ 25 mls/hr IVPB Q8 JUDY; Protocol Stop: 07/06/18 14:01 Last Admin: 07/02/18 05:56 Dose: 25 mls/hr Sodium Chloride (Sodium Chloride 0.9%) 1,000 mls @ 100 mls/hr IV .Q10H JUDY Last Admin: 07/02/18 05:53 Dose: 100 mls/hr Ketorolac Tromethamine (Toradol) 15 mg IM Q6 PRN PRN Reason: Pain, moderate (4-7) Stop: 07/06/18 13:05 Last Admin: 07/01/18 22:50 Dose: 15 mg - Labs Labs: 07/02/18 06:30 07/02/18 06:30 PT 12.1 SECONDS (9.4-12.5) 07/01/18 06:20 INR 1.05 07/01/18 06:20 APTT 26.7 Seconds (25.1-36.5) 07/01/18 06:20
--- NOTE | 2018-07-02 13:42 | PN ---
DATE: 07/02/2018 SUBJECTIVE: The patient is in bed, in no acute distress. PHYSICAL EXAMINATION: VITAL SIGNS: Temperature is 98, blood pressure is 120/60 and respiratory rate of 18. Examination of HEENT is unremarkable. NECK: Supple. LUNGS: Have decreased breath sounds. HEART: Normal S1 and S2. ABDOMEN: Soft, nontender. LABORATORY DATA: Reveals a white count of 8, hemoglobin 12. Chemistries are noted. Toxicology reveals opioids to be positive. Hepatitis C is positive. HIV is nonreactive. Microbiology reveals the blood cultures are negative. CT of the extremity reveals continuous edema. No abscess collection. No osteomyelitis and the patient's arm is greatly improved. ASSESSMENT AND PLAN: This is a 48-year-old male with left forearm cellulitis and sepsis with chronic active hepatitis C and seizures, on vancomycin and Zosyn, with negative blood cultures. May be able to switch to oral antibiotics, oral Augmentin and oral doxycycline x7 days as outpatient with all cultures negative and arm is greatly improved. Abhi Puente MD
--- NOTE | 2018-07-02 14:22 | CP.PCM.DIS ---
<CatWendy L - Last Filed: 07/02/18 19:40> Provider - Provider Date of Admission: 07/01/18 07:54 Attending physician: Kiran Skinner MD Primary care physician: Dr. Clement Consults: 06/30/18 11:45 Infectious Disease Consult Routine Comment: Consulting Provider: Abhi Puente Consulting Physician: Abhi Puente Reason for Consult: L arm abscess, ABx approval 06/30/18 12:51 General Surgery Consult Routine Comment: Consulting Provider: Mercedes Lucero Consulting Physician: Mercedes Lucero Reason for Consult: ? drainage, L arm abscess pending CT LUE 06/30/18 14:14 Inpatient NEWS TECHNICAL DIRECTOR Core Measures Referral Routine Comment: Physician Instructions: Reason For Exam: EVALUATION Nursing Referral for Wound Care Routine Comment: LEFT FOREARM CELLULITIS Physician Instructions: Reason For Exam: EVALUATION Transition In Care/Readmission Reduction Routine Comment: Physician Instructions: Reason For Exam: EVALUATION Time Spent in preparation of Discharge (in minutes): 45 Diagnosis - Discharge Diagnosis (1) Cellulitis of left forearm Status: Acute Hospital Course - Lab Results Lab Results: Micro Results 06/30/18 09:00 Blood Blood Culture - Preliminary NO GROWTH AFTER 48 HOURS 06/30/18 07:59 Blood Blood Culture - Preliminary NO GROWTH AFTER 48 HOURS Most Recent Lab Values WBC 8.1 10^3/uL (4.5-11.0) 07/02/18 06:30 RBC 3.86 10^6/uL (3.5-6.1) 07/02/18 06:30 Hgb 12.4 g/dL (14.0-18.0) L 07/02/18 06:30 Hct 36.1 % (42.0-52.0) L 07/02/18 06:30 MCV 93.5 fl (80.0-105.0) 07/02/18 06:30 MCH 32.1 pg (25.0-35.0) 07/02/18 06:30 MCHC 34.3 g/dl (31.0-37.0) 07/02/18 06:30 RDW 11.9 % (11.5-14.5) 07/02/18 06:30 Plt Count 231 10^3/uL (120.0-450.0) 07/02/18 06:30 MPV 9.9 fl (7.0-11.0) 07/02/18 06:30 Gran % 69.9 % (50.0-68.0) H 07/02/18 06:30 Lymph % (Auto) 21.0 % (22.0-35.0) L 07/02/18 06:30 Burt % (Auto) 7.6 % (1.0-6.0) H 07/02/18 06:30 Eos % (Auto) 1.1 % (1.5-5.0) L 07/02/18 06:30 Baso % (Auto) 0.4 % (0.0-3.0) 07/02/18 06:30 Gran # 5.69 (1.4-6.5) 07/02/18 06:30 Lymph # (Auto) 1.7 (1.2-3.4) 07/02/18 06:30 Burt # (Auto) 0.6 (0.1-0.6) 07/02/18 06:30 Eos # (Auto) 0.1 (0.0-0.7) 07/02/18 06:30 Baso # (Auto) 0.03 K/mm3 (0.0-2.0) 07/02/18 06:30 PT 12.1 SECONDS (9.4-12.5) 07/01/18 06:20 INR 1.05 07/01/18 06:20 APTT 26.7 Seconds (25.1-36.5) 07/01/18 06:20 Sodium 139 mmol/L (132-148) 07/02/18 06:30 Potassium 3.6 mmol/L (3.6-5.0) 07/02/18 06:30 Chloride 111 mmol/L (98-107) H 07/02/18 06:30 Carbon Dioxide 25 mmol/L (21-33) 07/02/18 06:30 Anion Gap 6 (10-20) L 07/02/18 06:30 BUN 16 mg/dL (7-21) 07/02/18 06:30 Creatinine 0.9 mg/dl (0.8-1.5) 07/02/18 06:30 Est GFR ( Amer) > 60 07/02/18 06:30 Est GFR (Non-Af Amer) > 60 07/02/18 06:30 Random Glucose 106 mg/dL (70-110) 07/02/18 06:30 Calcium 8.0 mg/dL (8.4-10.5) L 07/02/18 06:30 Total Bilirubin 0.4 mg/dL (0.2-1.3) 07/02/18 06:30 AST 21 U/L (17-59) 07/02/18 06:30 ALT 28 U/L (7-56) 07/02/18 06:30 Alkaline Phosphatase 56 U/L (38-126) 07/02/18 06:30 C-React Prot High Sens > 15.00 mg/L (1.00-3.00) H 06/30/18 07:59 Total Protein 5.6 g/dL (5.8-8.3) L 07/02/18 06:30 Albumin 2.9 g/dL (3.0-4.8) L 07/02/18 06:30 Globulin 2.8 gm/dL 07/02/18 06:30 Albumin/Globulin Ratio 1.0 (1.1-1.8) L 07/02/18 06:30 Urine Opiates Screen Positive (NEGATIVE) H 06/30/18 23:38 Urine Methadone Screen Negative (NEGATIVE) 06/30/18 23:38 Ur Barbiturates Screen Negative (NEGATIVE) 06/30/18 23:38 Ur Phencyclidine Scrn Negative (NEGATIVE) 06/30/18 23:38 Ur Amphetamines Screen Negative (NEGATIVE) 06/30/18 23:38 U Benzodiazepines Scrn Negative (NEGATIVE) 06/30/18 23:38 U Oth Cocaine Metabols Negative (NEGATIVE) 06/30/18 23:38 U Cannabinoids Screen Negative (NEGATIVE) 06/30/18 23:38 Hep Bs Antigen Negative (NEGATIVE) 06/30/18 08:30 Hepatitis C Antibody Reactive (Non Reactive) H 06/30/18 08:30 Hep C Ab Signal/Cutoff 32.8 (<1.0) H 06/30/18 08:30 HIV-1 Antibody TEST NOT PERFORMED 06/30/18 08:30 HIV-2 Antibody TEST NOT PERFORMED 06/30/18 08:30 HIV 1&2 Ag/Ab, 4th Gen Nonreactive (Nonreactive) 06/30/18 08:30 - Hospital Course Hospital Course: On admission: Mr. Monahan is a 48 M with PMHx of IVD abuse off Heroin for six years and seizures dx 10 years ago secondary to drugs and possible Hepatitis C who relapsed 3 weeks ago due to family social issues. Patient states that 4 days ago, left arm started to throb and become painful. Patient was hoping it would get better, but pain has become unbearable. Patient took four pills of his 's antibiotic Augmentin as well as half a Suboxin and Xanax. Patient also complains of productive cough but states this has been going on for years. Patient denies chest pain, shortness of breath, palpitations, headache, dizziness, leg pain, abdominal pain, nausea, vomiting, subjective fevers and chills, changes in bowel habits and recent infections or travel. During hospital stay: Patient was diagnosed with sepsis secondary to left forearm cellulitis. Patient was found to have leukocytosis with L shift, afebrile, tachycardia on admission. Patient was given NS, vancomycin, and zosyn. Patient had surgery consult who recommended warm compresses, extremity elevation, no drainage at this time. Id was consulted. Nonvascular ultrasound showed phlegmon with underlying abscess not excluded. Incidental thrombophlebitis distal L cephalic vein. Vascular ultrasound showed no evidence of DVT. CT LUE showed subcutaneous edema around wrist. No focal abscess. no OM. UDS was positive for opiates. Blood cultures were negative x2 after 24 hours. Patient also had serology tests that were positive for hepatitis C. Counseling was provided, compliance was discussed. Patient encouraged to follow up in outpatient clinic and importance of compliance with medications. Patient was optimized for discharge. Patient was discharged on doxycycline and augmentin. Please refer to EMR for full summary. - Date & Time of H&P Date of H&P: 06/30/18 Time of H&P: 11:52 Discharge Exam - Additional Findings Additional findings: - Constitutional Appears: Well, Non-toxic, No Acute Distress - Head Exam Head Exam: ATRAUMATIC, NORMOCEPHALIC - Eye Exam Eye Exam: EOMI, Normal appearance - ENT Exam ENT Exam: Mucous Membranes Moist - Neck Exam Neck exam: Positive for: Normal Inspection - Respiratory Exam Respiratory Exam: Wheezes, NORMAL BREATHING PATTERN. absent: Clear to Auscultation Bilateral, Respiratory Distress - GI/Abdominal Exam GI & Abdominal Exam: Normal Bowel Sounds, Soft. absent: Guarding, Rebound, Rigid, Tenderness - Extremities Exam Extremities exam: Positive for: normal inspection. Negative for: joint swelling Additional comments: 2 cm hard, non-fluctuant indurated distal dorsal forearm collection with edema and cellulitis distally in L forearm and hand as compared to R, improving since 06/30 - Skin Additional comments: tattoos on arms and chest Discharge Plan - Discharge Medications Prescriptions: Amoxicillin/Clavulanate [Augmentin 875 MG-125 MG] 1 tab PO BID 7 Days #14 tab RX: Doxycycline Hyclate [Doryx] 100 mg PO BID 7 Days #14 cap - Follow Up Plan Condition: STABLE Disposition: HOME/ ROUTINE Patient education suggested?: Yes Instructions: Hepatitis C, Cellulitis (DC) Additional Instructions: Please establish care in [facility] for Hep C treatment. The phone number . Please follow up with your primary medical doctor within one week. An appointment has been made for you to follow up with Dr. Clement in the [facility]. Please show up to the appointment on July 11 at 4:00 pm for registration. Please bring a photo ID. You have been prescribed Augmentin and Doxycycline. Please take these as prescribed. Also resume your home medications as prescribed. Return to ED if symptoms return or worsen. [place]: [facility] [place] [facility] [place] <Kiran Skinner - Last Filed: 07/03/18 12:24> Provider - Provider Date of Admission: 07/01/18 07:54 Attending physician: Kiran Skinner MD Consults: 06/30/18 11:45 Infectious Disease Consult Routine Comment: Consulting Provider: Abhi Puente Consulting Physician: Abhi Puente Reason for Consult: L arm abscess, ABx approval 06/30/18 12:51 General Surgery Consult Routine Comment: Consulting Provider: Mercedes Lucero Consulting Physician: Mercedes Lucero Reason for Consult: ? drainage, L arm abscess pending CT LUE 06/30/18 14:14 Inpatient NEWS TECHNICAL DIRECTOR Core Measures Referral Routine Comment: Physician Instructions: Reason For Exam: EVALUATION Nursing Referral for Wound Care Routine Comment: LEFT FOREARM CELLULITIS Physician Instructions: Reason For Exam: EVALUATION Transition In Care/Readmission Reduction Routine Comment: Physician Instructions: Reason For Exam: EVALUATION Hospital Course - Lab Results Lab Results: Micro Results 06/30/18 09:00 Blood Blood Culture - Preliminary NO GROWTH AFTER 3 DAYS 06/30/18 07:59 Blood Blood Culture - Preliminary NO GROWTH AFTER 3 DAYS Most Recent Lab Values WBC 6.1 10^3/uL (4.5-11.0) D 07/03/18 06:30 RBC 3.75 10^6/uL (3.5-6.1) 07/03/18 06:30 Hgb 11.6 g/dL (14.0-18.0) L 07/03/18 06:30 Hct 34.9 % (42.0-52.0) L 07/03/18 06:30 MCV 93.1 fl (80.0-105.0) 07/03/18 06:30 MCH 30.9 pg (25.0-35.0) 07/03/18 06:30 MCHC 33.2 g/dl (31.0-37.0) 07/03/18 06:30 RDW 12.5 % (11.5-14.5) 07/03/18 06:30 Plt Count 237 10^3/uL (120.0-450.0) 07/03/18 06:30 MPV 9.0 fl (7.0-11.0) 07/03/18 06:30 Gran % 50.8 % (50.0-68.0) 07/03/18 06:30 Lymph % (Auto) 34.7 % (22.0-35.0) 07/03/18 06:30 Burt % (Auto) 9.1 % (1.0-6.0) H 07/03/18 06:30 Eos % (Auto) 4.7 % (1.5-5.0) 07/03/18 06:30 Baso % (Auto) 0.7 % (0.0-3.0) 07/03/18 06:30 Gran # 3.11 (1.4-6.5) 07/03/18 06:30 Lymph # (Auto) 2.1 (1.2-3.4) 07/03/18 06:30 Burt # (Auto) 0.6 (0.1-0.6) 07/03/18 06:30 Eos # (Auto) 0.3 (0.0-0.7) 07/03/18 06:30 Baso # (Auto) 0.04 K/mm3 (0.0-2.0) 07/03/18 06:30 PT 12.1 SECONDS (9.4-12.5) 07/01/18 06:20 INR 1.05 07/01/18 06:20 APTT 26.7 Seconds (25.1-36.5) 07/01/18 06:20 Sodium 137 mmol/L (132-148) 07/03/18 06:30 Potassium 3.9 mmol/L (3.6-5.0) 07/03/18 06:30 Chloride 108 mmol/L (98-107) H 07/03/18 06:30 Carbon Dioxide 26 mmol/L (21-33) 07/03/18 06:30 Anion Gap 8 (10-20) L 07/03/18 06:30 BUN 17 mg/dL (7-21) 07/03/18 06:30 Creatinine 0.9 mg/dl (0.8-1.5) 07/03/18 06:30 Est GFR ( Amer) > 60 07/03/18 06:30 Est GFR (Non-Af Amer) > 60 07/03/18 06:30 Random Glucose 93 mg/dL (70-110) 07/03/18 06:30 Calcium 8.0 mg/dL (8.4-10.5) L 07/03/18 06:30 Total Bilirubin 0.2 mg/dL (0.2-1.3) 07/03/18 06:30 AST 21 U/L (17-59) 07/03/18 06:30 ALT 29 U/L (7-56) 07/03/18 06:30 Alkaline Phosphatase 54 U/L (38-126) 07/03/18 06:30 C-React Prot High Sens > 15.00 mg/L (1.00-3.00) H 06/30/18 07:59 Total Protein 5.3 g/dL (5.8-8.3) L 07/03/18 06:30 Albumin 2.7 g/dL (3.0-4.8) L 07/03/18 06:30 Globulin 2.7 gm/dL 07/03/18 06:30 Albumin/Globulin Ratio 1.0 (1.1-1.8) L 07/03/18 06:30 Urine Opiates Screen Positive (NEGATIVE) H 06/30/18 23:38 Urine Methadone Screen Negative (NEGATIVE) 06/30/18 23:38 Ur Barbiturates Screen Negative (NEGATIVE) 06/30/18 23:38 Ur Phencyclidine Scrn Negative (NEGATIVE) 06/30/18 23:38 Ur Amphetamines Screen Negative (NEGATIVE) 06/30/18 23:38 U Benzodiazepines Scrn Negative (NEGATIVE) 06/30/18 23:38 U Oth Cocaine Metabols Negative (NEGATIVE) 06/30/18 23:38 U Cannabinoids Screen Negative (NEGATIVE) 06/30/18 23:38 Hep Bs Antigen Negative (NEGATIVE) 06/30/18 08:30 Hep B DNA Interpret <1.30 not detected log IU/mL (<1.30) 06/30/18 08:30 Hepatitis C Antibody Reactive (Non Reactive) H 06/30/18 08:30 Hep C Ab Signal/Cutoff 32.8 (<1.0) H 06/30/18 08:30 HIV-1 Antibody TEST NOT PERFORMED 06/30/18 08:30 HIV-2 Antibody TEST NOT PERFORMED 06/30/18 08:30 HIV 1&2 Ag/Ab, 4th Gen Nonreactive (Nonreactive) 06/30/18 08:30 Attending/Attestation - Attestation I have personally seen and examined this patient.: Yes I have fully participated in the care of the patient.: Yes I have reviewed all pertinent clinical information, including history, physical exam and plan: Yes Notes (Text): 07/03/18 12:23 Medical record note made by the resident after discussion with my direction and input after the patient was personally seen and examined by me. I have reviewed the chart and agree that the record accurately reflects by personal performance of the history, physical exam, data review, and medical decision-making, in the course for the patient. I have also personally directed the plan of care. 48 M with PMH of IV drug abuse , seizure disorder? was admitted with left arm cellulitis, CT scan was negative for any abscess. Redness and swelling has improved with IV antibiotics Vancomycin and Zosyn Blood cultures are negative for any growth. Patient will be discharged home on oral Augmentin and doxycyline as recommended by ID. Issue of ongoing drug abuse was discussed in detail with him Management plan was discussed in detail with patient. Education was provided
[2018-07-02] MEDS: Amoxicillin-Clav 875-125 mg Tab PO SCH (21:45)
[2018-07-03 06:52] LABS: BASO # 0.04 K/mm3 (0.0-2.0); BASO % 0.7 % (0.0-3.0); EOS # 0.3 (0.0-0.7); EOS % 4.7 % (1.5-5.0); GRAN # 3.11 (1.4-6.5); GRAN % 50.8 % (50.0-68.0); HEMOGLOBIN 11.6 g/dL (14.0-18.0); LYMPH # 2.1 (1.2-3.4); LYMPH % 34.7 % (22.0-35.0); MEAN CELL VOLUME 93.1 fl (80.0-105.0); MEAN CORPUSCULAR HEMOGLOBIN 30.9 pg (25.0-35.0); MEAN CORPUSCULAR HGB CONC 33.2 g/dl (31.0-37.0); MONO # 0.6 (0.1-0.6); MONO % 9.1 % (1.0-6.0); RBC 3.75 10^6/uL (3.5-6.1); RED CELL DISTRIBUTION WIDTH 12.5 % (11.5-14.5); WHITE BLOOD COUNT 6.1 10^3/uL (4.5-11.0)
[2018-07-03 06:59] LABS: ALBUMIN 2.7 g/dL (3.0-4.8); ALT/SGPT 29 U/L (7-56); AST/SGOT 21 U/L (17-59); BLOOD UREA NITROGEN 17 mg/dL (7-21); GFR NON-AFRICAN AMERICAN > 60
[2018-07-03 08:32] VITALS: BP 112/60; PULSE 59; TEMP 97.7; O2SAT 95
[2018-07-03] MEDS: Amoxicillin-Clav 875-125 mg Tab PO SCH (11:18)
--- NOTE | 2018-07-03 11:39 | CP.PCM.PN ---
<Pepe Cooper - Last Filed: 07/03/18 11:40> Subjective - Date & Time of Evaluation Date of Evaluation: 07/03/18 Time of Evaluation: 11:37 - Subjective Subjective: Jitendra Cooper PGY2 - Progress Note for Hospitalist Service Patient seen and examined this AM. No complaints at time of interview. Patient reportedly was unable to find a ride home yesterday after being discharged. Patient remained in hospital overnight without acute events. Patient is to be discharged today. Patient offers no complaints. Objective - Vital Signs/Intake and Output Vital Signs (last 24 hours): Temp Pulse Resp BP Pulse Ox 97.7 F 59 L 20 112/60 95 07/03/18 07:00 07/03/18 07:00 07/03/18 07:00 07/03/18 07:00 07/03/18 07:00 Intake and Output: 07/03/18 07/03/18 06:59 18:59 Intake Total 540 Balance 540 - Medications Medications: Current Medications Albuterol/Ipratropium (Duoneb 3 Mg/0.5 Mg (3 Ml) Ud) 3 ml IH Q2H PRN PRN Reason: Shortness of Breath Amoxicillin/Clavulanate Potassium (Augmentin 875 Mg-125 Mg Tab) 1 tab PO Q12 JUDY; Protocol Last Admin: 07/03/18 11:18 Dose: 1 tab Doxycycline Hyclate (Doryx) 100 mg PO Q12 JUDY; Protocol Last Admin: 07/03/18 09:36 Dose: 100 mg Ketorolac Tromethamine (Toradol) 15 mg IM Q6 PRN PRN Reason: Pain, moderate (4-7) Stop: 07/06/18 13:05 Last Admin: 07/02/18 21:49 Dose: 15 mg - Labs Labs: 07/03/18 06:30 07/03/18 06:30 PT 12.1 SECONDS (9.4-12.5) 07/01/18 06:20 INR 1.05 07/01/18 06:20 APTT 26.7 Seconds (25.1-36.5) 07/01/18 06:20 - Constitutional Appears: No Acute Distress - Head Exam Head Exam: ATRAUMATIC, NORMAL INSPECTION, NORMOCEPHALIC - Eye Exam Eye Exam: EOMI, PERRL - ENT Exam ENT Exam: Mucous Membranes Moist - Neck Exam Neck Exam: Full ROM - Respiratory Exam Respiratory Exam: Clear to Ausculation Bilateral, NORMAL BREATHING PATTERN - Cardiovascular Exam Cardiovascular Exam: REGULAR RHYTHM, +S1, +S2 - GI/Abdominal Exam GI & Abdominal Exam: Soft, Hyperactive Bowel Sounds, Normal Bowel Sounds - Back Exam Back Exam: NORMAL INSPECTION. absent: CVA tenderness (L), CVA tenderness (R) - Neurological Exam Neurological Exam: Alert, Awake, CN II-XII Intact, Normal Gait, Oriented x3 Neuro motor strength exam: Left Upper Extremity: 5, Right Upper Extremity: 5, Left Lower Extremity: 5, Right Lower Extremity: 5 - Psychiatric Exam Psychiatric exam: Normal Affect, Normal Mood - Skin Skin Exam: Dry, Intact Assessment and Plan - Assessment and Plan (Free Text) Assessment: 48 M with PMH of IV drug abuse , seizure disorder? was admitted with left arm cellulitis, CT scan was negative for any abscess. Redness and swelling is improving Continue IV antibiotics Vancomycin and Zosyn Blood cultures are negative for any growth. Patient discharged yesterday to home, unable to find ride Patient to be discharged this AM. <Kiran Skinner - Last Filed: 07/03/18 12:25> Objective - Vital Signs/Intake and Output Vital Signs (last 24 hours): Temp Pulse Resp BP Pulse Ox 97.7 F 59 L 20 112/60 95 07/03/18 07:00 07/03/18 07:00 07/03/18 07:00 07/03/18 07:00 07/03/18 07:00 Intake and Output: 07/03/18 07/03/18 06:59 18:59 Intake Total 540 Balance 540 - Labs Labs: 07/03/18 06:30 07/03/18 06:30 PT 12.1 SECONDS (9.4-12.5) 07/01/18 06:20 INR 1.05 07/01/18 06:20 APTT 26.7 Seconds (25.1-36.5) 07/01/18 06:20 Attending/Attestation - Attestation I have personally seen and examined this patient.: Yes I have fully participated in the care of the patient.: Yes I have reviewed all pertinent clinical information, including history, physical exam and plan: Yes Notes (Text): 07/03/18 12:25 Medical record note made by the resident after discussion with my direction and input after the patient was personally seen and examined by me. I have reviewed the chart and agree that the record accurately reflects by personal performance of the history, physical exam, data review, and medical decision-making, in the course for the patient. I have also personally directed the plan of care.
--- NOTE | 2018-07-03 16:36 | PN ---
DATE: 07/03/2018 SUBJECTIVE: The patient is in bed, in no acute distress, nontoxic. PHYSICAL EXAMINATION VITAL SIGNS: Temperature is 97, blood pressure is 112/60, respiratory rate of 20, heart rate of 72. HEENT: Unremarkable. NECK: Supple. LUNGS: Have decreased breath sounds. HEART: Normal S1, S2. ABDOMEN: Soft, nontender. LABORATORY DATA: Reveals white count of 6.1, hemoglobin of 11, platelets of 237. Chemistry; BUN of 17, creatinine of 0.9. C-reactive protein is greater than 15. Hepatitis C is reactive. HIV is negative. Microbiology reveals the blood cultures are negative. ASSESSMENT AND PLAN: This Is a 48-year-old male who was seen early this morning with left forearm cellulitis and sepsis, chronic active hepatitis C, history of seizures, may be able to switch to oral Augmentin and doxycycline as discussed with nursing staff and house staff and will follow primary medical doctor as outpatient. He agrees. Abhi Puente MD
== END 2018-07-03 11:37 | disposition home or self-care (01) | DRG 720 ==
LOC: ED 06:49 → ERH 09:30 → 5RNO 11:17 → OBSVTOIN 07-01 07:54 → 5RNO 07-02 22:59
PROVIDERS: ADMIT Internal Medicine; ATTEND Internal Medicine
PROC: 3E02340 Introduction of Influenza Vaccine into Muscle, Percutaneous Approach (ICD-10-PCS; principal; 2018-06-30)
PROC: 3E0234Z Introduction of Serum, Toxoid and Vaccine into Muscle, Percutaneous Approach (ICD-10-PCS; 2018-06-30)
DX: A41.9 Sepsis, unspecified organism (principal); I80.8 Phlebitis and thrombophlebitis of other sites; L03.114 Cellulitis of left upper limb; B18.2 Chronic viral hepatitis C; F11.10 Opioid abuse, uncomplicated; E87.6 Hypokalemia; D64.9 Anemia, unspecified; G89.4 Chronic pain syndrome; G40.909 Epilepsy, unspecified, not intractable, without status epilepticus; Z87.891 Personal history of nicotine dependence; Z23 Encounter for immunization